=== PATIENT | male | born 1980 | race Caucasian/White ===

== ENCOUNTER 2021-02-19 10:33 | Emergency (ER) | payer BC ==
[~2021-02-19] VITALS: Ht 177.8 cm; Wt 95.3 kg
[2021-02-19 11:18] LABS: ABSOLUTE BASOPHILS 0.1 thou/uL (0.0-0.2); ABSOLUTE EOSINOPHILS 0.4 thou/uL (0.0-0.7); ABSOLUTE MONOCYTES 0.6 thou/uL (0.0-1.2); ABSOLUTE NEUTROPHILS 6.3 thou/uL (1.6-8.1); BASOPHILS 0.6 %; EOSINOPHILS 4.6 %; HEMATOCRIT 44.1 % (42.0-52.0); LYMPHOCYTES 21.6 %; MCH 30.8 pg (26.0-34.0); MCV 90.7 fL (80.0-100.0); MPV 7.6 fl. (7.2-11.1); NUCLEATED RBCS 0 /100WBC; PLATELET COUNT* 322 thou/uL (150-400); POLYS 67.2 %; RBC 4.86 mil/uL (4.50-6.00); WBC 9.4 thou/uL (4.0-11.0)
[2021-02-19 12:02] LABS: CALCIUM 8.6 mg/dL (8.5-10.1); CREATININE 1.2 mg/dL (0.6-1.3); POTASSIUM 4.9 mmol/L (3.5-5.1)
[2021-02-19 12:13] LABS: MAGNESIUM 1.9 mg/dL (1.8-2.4); TOTAL BILIRUBIN 0.6 mg/dL (<0.1-1.0); TOTAL PROTEIN 7.7 g/dL (6.4-8.2)
[2021-02-19 13:57] VITALS: BP 118/65
--- NOTE | 2021-02-19 16:14 | EKG ---
[place] [address] ELECTROCARDIOGRAM REPORT Name: JOMAR HELM Room: [facility]#: [id number] Admission: 02/19/21 Attend Phys: Discharge: 02/19/21 Date of : 76 Date of Service: 02/19/21 1041 Report #: [id number] THIS REPORT FOR: //name// [facility] ED Test Date: 2021-02-19 Test Time: 10:41:08 Pat Name: JOMAR HELM Department: Room: Gender: Athletic Coach: : 1980 Requested By: Santy Gillis Order Number: [id number] MD: Israel Hogue Measurements Intervals [place] Rate: 93 P: 82 MD: 150 QRS: 56 QRSD: 94 T: 28 QT: 364 QTc: 453 Interpretive Statements Sinus rhythm Probable left atrial enlargement RSR' in V1 or V2, probably normal variant Baseline wander in lead(s) V2 No previous ECG available for comparison Electronically Signed On 02-19-2021 16:14:32 CDT by Israel Hogue [email or web address] <ELECTRONICALLY SIGNED> By: Israel Hogue MD, FACC 02/19/21 1614 1041 1041 Israel Hogue MD, [facility] /EPI
== END 2021-02-19 13:59 | disposition home or self-care (01) ==
LOC: M.ERS 10:33
PROVIDERS: Family Medicine
DX: R07.89 Other chest pain (principal); Z87.891 Personal history of nicotine dependence; Z88.1 Allergy status to other antibiotic agents